=== PATIENT | male | born 1990 | race Caucasian/White ===

== ENCOUNTER 2024-03-11 14:13 | Emergency (ER) | payer SELFPAY ==
[2024-03-11 14:14] VITALS: BP 134/92
[2024-03-11 16:08] VITALS: BMI 17.5
[2024-03-11 16:11] VITALS: BP 120/84
[2024-03-11 17:00] VITALS: BP 129/89
[2024-03-11 18:00] VITALS: BP 121/82
--- NOTE | 2024-03-11 18:26 | ED.GENMED ---
History of Present Illness
General
Chief Complaint: Back Pain
Time Seen by Provider: 03/11/24 17:43
History of Present Illness
History of Present Illness:
Patient presents to the emergency department with lower back pain. Pain is on the left side of his low back. Pain is occasional electric in nature. Pain does not radiate into the legs. There is no weakness in the legs. Patient denies any
exacerbating factors or heavy lifting.
Past History
Past History
ED Past Medical History: Other (Eczema)
ED Past Surgical History: Other (Bowel)
Social History
Tobacco: Smoker
Alcohol: Occasional
Drug: None
Personal: Single
Living: with roommate
Employment: Employed
Family History
Family History: Other (No significant)
Phy Exam
Physical Exam
Physical Exam:
General: No acute distress
Head: NCAT
Neck, Normal in appearance, no swelling
Respiratory: No Respiratory distress
Abdomen: No distension, nontender. No pulsatile masses
Ext: no edema, equal pulses in all 4 extremities
Neuro: RSAHID, AOx4
Back: There is mild L paraspinal lumbar tenderness to palpation. There is no lesions or skin changes. There is no midline or bony tenderness or step-off
Psych: Normal affect
Skin: Normal color
Course
Orders/Labs/Results
Orders:
Orders
03/11/24 14:17
CR Lumbar Spine Comp Min 4 Vw* Urgent
Comment:
Reason For Exam: pain
03/11/24 18:16
Urine Culture Reflexed from UA [Urinalysis Reflex To Culture] Urgent
Date Specimen was Collected: 03/11/24
Time Specimen was Collected: 14:17
Urine Microscopic Reflex Cult Urgent
03/11/24 18:28
Lidocaine [Lidocaine 4% Patch] 1 patch TOPICAL ONCE ONE
Apply Lidocaine patch(s) to:: lower back
Naproxen [Naprosyn] 500 mg PO NOW STA
Abnormal Lab Results
03/11/24
18:16
Urine Ketones Trace A
(Negative)
Ur Occult Blood Reflex 3+ A
(Negative)
Urine Albumin (Reflex) 1+ A
(Neg - Trace)
Vital Signs
Initial and Last Documented VS:
Initial Vital Signs
Temp Pulse Resp BP Pulse Ox
98.2 F 89 20 134/92 99
03/11/24 14:14 03/11/24 14:14 03/11/24 14:14 03/11/24 14:14 03/11/24 14:14
Last Documented Vital Signs
Temp Pulse Resp BP Pulse Ox
98.2 F 72 18 121/82 100
03/11/24 14:14 03/11/24 18:00 03/11/24 18:00 03/11/24 18:00 03/11/24 18:00
*Critical Care Note
Total Time (30-74mins, 75-104mins- exclusive of procedures): Not Applicable
ED Attending Note
ED Attending Note
ED Attending Note:
Patient presents with paraspinal lower back pain. Possibly musculoskeletal pain less likely lumbar radiculopathy given lack of radiation. No neurologic symptoms in extremities. Considered kidney stone further workup with patient including CT
scan, patient declined at this time as his pain is well-controlled. Microscopic hematuria noted. I instructed him to follow-up with his primary doctor for this. he will return to the emergency department for CT scan if pain worsens or is
intractable
-
Portions of this chart may have been created with voice recognition software.� Occasional wrong word or��sound alike� substitutions may have occurred due to the inherent limitations of voice recognition software.
Discharge Plan
Departure
Patient Disposition: Home (Routine Discharge)
Date of Disposition: 03/11/24
Time of Disposition: 18:29
Patient with high blood pressure during this ER visit?: No
Discharge Problem:
Lumbar back pain
Instructions: Low Back Pain (DC)
Prescriptions:
New
naproxen 500 mg tablet
500 mg PO BID Qty: 14 0RF
Referrals:
NONE,* [Family Provider] -
Stand Alone Forms: Return to Work
Interventions
Interventions:
*Risk Screen - Suicide Last Done: 03/11/24 16:04
*General Assessment Last Done: 03/11/24 14:14
*Neglect/Abuse Screening Last Done: 03/11/24 16:04
ED- Fall Risk Assessment Last Done: 03/11/24 16:04
*ED COVID-19 Vaccine History Last Done: 03/11/24 16:04
ED-Musculoskeletal Assessment Last Done: 03/11/24 16:04
Discharge Date and Time
Print Language: LIBERIAN
[2024-03-11 18:27] LABS: Urine Albumin 1+ (Neg - Trace); Urine Bilirubin Negative (Negative); Urine Character Clear (Clear); Urine Color Yellow; Urine Glucose Negative (Negative); Urine Ketone Trace (Negative); Urine Leukocyte Negative (Negative); Urine Nitrite Negative (Negative); Urine Occult Blood 3+ (Negative); Urine Urobilinogen Negative (Neg - 1+)
[2024-03-11] MEDS: LIDOCAINE 4% PATCH 1 PATCH TOPICAL (18:38)
[2024-03-11] MEDS: NAPROSYN 500 MG PO (18:38)
[2024-03-11 19:10] LABS: Urine Squamous Cell >30 /LPF (Few)
[2024-03-11 19:11] LABS: Urine Bacteria Few (Negative); Urine Red Blood Cell 26-30 /HPF (0-2)
== END 2024-03-11 19:05 | disposition home or self-care (01) ==
LOC: EMR 14:13
PROVIDERS: Emergency Medicine; EMERGENCY PHYSICIAN Emergency Medicine
DX: M54.50 Low back pain, unspecified (principal); F17.200 Nicotine dependence, unspecified, uncomplicated
CPT/HCPCS: 99283; 72110; 81003; 81015